=== PATIENT | male | born 1965 | race Caucasian/White ===

== ENCOUNTER 2023-09-18 00:34 | Emergency (ER) | payer MEDICAID, OTHER ==
[~2023-09-18] VITALS: Ht 175.3 cm; Wt 81.6 kg
[2023-09-18] MEDS: TAMSULOSIN 0.4 MG CAP.SR.24H PO ONE (01:30)
[2023-09-18] MEDS: CIPROFLOXACIN HCL 500 MG TABLET PO ONE (01:30)
[2023-09-18] MEDS: IBUPROFEN 600 MG TABLET PO ONE (01:30)
[2023-09-18] MEDS ORDERED: CIPROFLOXACIN HCL 500 MG TABLET ONE (01:38)
[2023-09-18] MEDS ORDERED: TAMSULOSIN 0.4 MG CAP.SR.24H ONE (01:38)
[2023-09-18] MEDS ORDERED: IBUPROFEN 600 MG TABLET ONE (01:38)
[2023-09-18 01:59] LABS: APPEARANCE,URINE SLIGHTLY CLOUDY (CLEAR); BILIRUBIN,URINE NEGATIVE (NEGATIVE); BLOOD, URINE NEGATIVE Ery/uL (NEGATIVE); COLOR,URINE YELLOW (YELLOW); KETONES,URINE NEGATIVE (NEGATIVE); LEUKOCYTE ESTERASE ,URINE NEGATIVE (NEGATIVE); NITRITE, URINE NEGATIVE (NEGATIVE); PROTEIN,URINE TRACE mg/dl (NEGATIVE); UGLUCOSE NEGATIVE (NEGATIVE)
[2023-09-18] MEDS ORDERED: TAMS-12 PO (02:03)
[2023-09-18] MEDS ORDERED: IBUP-1953 PO (02:03)
[2023-09-18] MEDS ORDERED: CIPR500T5 PO (02:03)
[2023-09-18 02:06] LABS: ADD URINE CULTURE NO; BACTERIA,URINE Rare /HPF (None Seen); RBC,URINE 0-2 /HPF (0-2); SQUAMOUS EPITHELIAL CELL,UR Few /HPF (None Seen); WBC,URINE 0-2 /HPF (0-3)
[2023-09-18 02:27] VITALS: BP 130/98; TEMP 98.1; O2SAT 97
== END 2023-09-18 02:28 | disposition home or self-care (01) ==
LOC: ER 00:37
DX: N34.2 Other urethritis (principal); R10.31 Right lower quadrant pain
CPT/HCPCS: 81001